=== PATIENT | male | born 2000 | race African-American/Black ===

== ENCOUNTER 2019-12-06 17:08 | Emergency (ER) | payer OTHER ==
[~2019-12-06] VITALS: Ht 190.5 cm; Wt 72.6 kg
[2019-12-06] MEDS ORDERED: REMERON30 MG PO (17:19)
== END 2019-12-06 19:14 | disposition home or self-care (01) ==
LOC: ED 17:08
DX: G43.109 Migraine with aura, not intractable, without status migrainosus (principal); Z79.899 Other long term (current) drug therapy
CPT/HCPCS: 99284; A9270